=== PATIENT | female | born 1975 | race Two or more races ===

== ENCOUNTER 2021-01-25 14:18 | Emergency (ER) | payer OTHER ==
[~2021-01-25] VITALS: Ht 167.6 cm; Wt 136.1 kg
[2021-01-25] MEDS ORDERED: PROAIR RESPICL90 MCG (15:31)
[2021-01-25] MEDS ORDERED: PAXIL40 MG (15:31)
== END 2021-01-25 19:53 | disposition home or self-care (01) ==
LOC: ER 14:18
DX: M54.5 Low back pain (principal); M53.3 Sacrococcygeal disorders, not elsewhere classified; M75.82 Other shoulder lesions, left shoulder; B35.4 Tinea corporis